=== PATIENT | female | born 1955 | race Caucasian/White ===

== ENCOUNTER → 2017-03-27 | Outpatient (CLI) | payer BC ==
--- NOTE | 2017-03-27 22:47 | WWHP ---
DATE OF DICTATION: 03/27/2017 CHIEF COMPLAINT: The patient is here for her routine gynecologic exam. HISTORY OF PRESENT ILLNESS: This is a 62-year-old G3, P2-0-1-2 with an LMP of 2010. The patient is without gynecologic complaints and denies any postmenopausal bleeding. PAST MEDICAL HISTORY: Hypothyroidism, but she is currently not taking medication for this. MEDICATIONS: None. ALLERGIES: NO KNOWN DRUG ALLERGIES. PAST SURGICAL HISTORY: 1. section x2. 2. D&C x4. 3. Left hip surgery following a fall in 01/22. 4. Colonoscopy at age 51. 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 SOCIAL HISTORY: She denies tobacco, alcohol and drug use. 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 She has been off work since her hip injury in 01/22. FAMILY HISTORY: Father had prostate cancer and diabetes. Mother had uterine cancer in situ. REVIEW OF SYSTEMS: She has gained about 6 pounds over the last year. She denies respiratory, cardiac or GI problems. PHYSICAL EXAM: Blood pressure 150/69 with repeat blood pressure 144/78. Height 5 feet 5 inches. Weight 154 pounds. Temperature 94. Pulse 75. This is a well-developed, well-nourished white female who is alert and oriented x3, in no acute distress. HEENT is within normal limits. NECK: Supple without mass or thyromegaly. CHEST AND LUNGS: Clear to auscultation. HEART: Regular rate and rhythm. Breasts are without mass or discharge. Axillary exam is negative for adenopathy. BACK: Negative for CVA tenderness. ABDOMEN: Soft, nontender, without palpable masses. PELVIC EXAM: External genitalia reveal mild atrophy without lesions. Cervix and vagina reveal mild atrophy without lesions. There is no evidence of prolapse. The uterus is mid position, non-gravid size and nontender. There are no palpable adnexal masses or tenderness. Rectovaginal exam is negative for mass or tenderness and is negative for occult blood. EXTREMITIES: Nontender. IMPRESSION: A 62-year-old menopausal female with normal gynecologic exam. PLAN: 1. Pap smear was performed. 2. Self breast examination was discussed. 3. Mammogram is due, and she has an appointment for this on 03/30/17. 4. Osteoporosis prevention was discussed. We will plan on bone density testing, and an order slip was given to the patient for this. 5. Screening colonoscopy was recommended since it has been more than 10 years since her last one, and she states she will look into doing this. 6. We have discussed her elevated blood pressure, and I have recommended that she establish with a primary care physician as soon as possible and follow up with that person for her blood pressure. I have also recommended that she do regular home blood pressure checks since she does have her own cuff. 7. I have recommended that she talk to her new primary care physician regarding the need for Synthroid, which she states she discontinued on her own at the time of her hip surgery. 8. She will return in one year.
== END | disposition home or self-care (01) ==
LOC: WWCWWP 11:30
PROVIDERS: ATTEND Obstetrics & Gynecology
DX: Z53.9 Procedure and treatment not carried out, unspecified reason (principal)

== ENCOUNTER → 2017-05-16 | Outpatient (CLI) | payer BC ==
--- NOTE | 2017-05-16 16:45 | BD ---
EXAMINATION TYPE: MG DEXA axial skeleton. DATE OF EXAM: 05/16/2017 COMPARISON: NONE CLINICAL HISTORY: 62-year-old female postmenopausal screening Height: 5 FT 4 1/2 IN Weight: 153 FRAX RISK QUESTIONS: Alcohol (3 or more units per day): NO Family History (Parent hip fracture): YES Glucocorticoids (More than 3mos): NO (Ex: prednisone, prednisolone, methylprednisolone, dexamethasone, and hydrocortisone). History of Fracture in Adulthood: YES Secondary Osteoporosis: 1. Type 1 Diabetes: NO 2. Hyperthyroidism: NO 3. Menopause before 45: NO 4. Malnutrition: NO 5. Chronic liver disease: NO Rheumatoid Arthritis: NO Current Tobacco Use: NO RISK FACTORS HISTORY OF: Hip Fracture (Right/Left): LEFT When: 2017 Surgery to Spine/Hip(right/left)/Wrist (right/left): LT HIP SURGERY When: 2017 Family History of Osteoporosis: NO Active: YES Postmenopausal woman: AGE 56 MEDICATIONS: Additional Medications: NONE Additional History: EXAM MEASUREMENTS: Bone mineral densitometry was performed using the [employer]. Bone mineral density as measured about the Lumbar spine is: ----- L1-L4(G/cm2): 1.100 T Score Values are as follows: ----- L2: -1.4 ----- L3: -0.7 ----- L4: -0.2 ----- L1-L4: -0.7 BASELINE Bone mineral density about the R hip (g/cm2): 0.670 T Score values are as follows: -----R Neck: -2.6 -----R Total: -2.8 BASELINE IMPRESSION: Osteoporosis (T Score less than -2.5) as noted by T Score values at the There is increased fracture risk and therapy is usually indicated based on age. Re-Screen 1-2 years. NOTE: T-SCORE=SD OF THE YOUNG ADULT MEAN.
== END | disposition home or self-care (01) ==
LOC: RADBDWWP 13:58
PROVIDERS: ATTEND Obstetrics & Gynecology
DX: M81.0 Age-related osteoporosis without current pathological fracture (principal); Z78.0 Asymptomatic menopausal state
CPT/HCPCS: 77080

== ENCOUNTER → 2017-05-22 | Outpatient (CLI) | payer BC ==
[2017-05-22 13:12] LABS: Calcium 9.5 mg/dL (8.4-10.2); Non-African American GFR(MDRD) >60 (>60 ml/min/1.73 sqM)
== END | disposition home or self-care (01) ==
LOC: LABWHC1 12:08
PROVIDERS: ATTEND Obstetrics & Gynecology
DX: M81.0 Age-related osteoporosis without current pathological fracture (principal)
CPT/HCPCS: 36415; 82310; 82565

== ENCOUNTER → 2018-04-24 | Outpatient (CLI) | payer BC ==
[2018-04-24 11:56] VITALS: BP 126/72; PULSE 65; TEMP 97.1; BMI 26.1
--- NOTE | 2018-04-24 12:47 | P.HPOB ---
History of Present Illness H&P Date: 04/24/18 Chief Complaint: The patient is here for her routine gynecologic exam. This is a 63-year-old with an LMP of 2010. The patient is without gynecologic complaints and denies any postmenopausal bleeding. Review of Systems The patient has gained 3 pounds over the last year. She believes she has gained some weight because of decreased activity after her hip surgery. She denies respiratory, cardiac, or G.I. problems. 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 History of Any Multi-Drug Resistant Organisms: None Reported Past Surgical History: Section (x2), Orthopedic Surgery (Left hip), Tonsillectomy, Tubal Ligation Additional Past Surgical History / Comment(s): D&C x4. Colonoscopy 2005. 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 - Past Family History Father Family Medical History: Cancer (Prostate), Diabetes Mellitus Mother Family Medical History: Cancer (Uterine CIS) Medications and Allergies Home Medications Medication Instructions Recorded Confirmed Type Alendronate Sodium 70 mg PO WEEKLY 04/24/18 04/24/18 History Cholecalciferol (Vitamin D3) cap PO DAILY 04/24/18 History [Vitamin D3] Folic Acid mg PO DAILY 04/24/18 History Multivitamin [Multivitamins Adult tab PO DAILY 04/24/18 History Gummies] Allergies Allergy/AdvReac Type Severity Reaction Status Date / Time No Known Allergies Allergy Unverified 04/24/18 11:51 Exam Vital Signs Temp Pulse BP 04/24/18 11:52 97.1 F L 65 126/72 Intake and Output 04/23/18 04/24/18 04/24/18 22:59 06:59 14:59 Other: Weight 71.271 kg Height 5'5", BMI 26.1. This is a well-developed well-nourished white female who is alert and oriented times 3 in no acute distress. HEENT: Within normal limits. NECK: Supple without mass or thyromegaly. CHEST AND LUNGS: Clear to auscultation. HEART: Regular rate and rhythm. BREASTS: Are without mass or discharge. AXILLARY EXAM: Negative for adenopathy. BACK: Negative for CVA tenderness. ABDOMEN: Soft, nontender, without palpable masses. PELVIC EXAM: Normal external genitalia with mild to moderate atrophy. Cervix and vagina appear normal moderate atrophy. There is no unusual discharge. There is no evidence of prolapse. The uterus is midposition, nongravid size and nontender. There are no palpable adnexal masses or tenderness. RECTAL EXAM: rectovaginal exam is negative for mass or tenderness and is negative for occult blood. EXTREMITIES: Nontender. IMPRESSION: 1. 63-year-old menopausal female with normal gynecologic exam. 2. Osteoporosis. She has been on Fosamax for almost one year. PLAN: 1. Pap smear was deferred since she had a normal one last year. 2. Self breast awareness was discussed. 3. Screening mammogram is due. She would like to have them done at [facility] an order slip was given to the patient for this. 4. Osteoporosis management was discussed. I stressed the importance of adequate calcium, vitamin D and regular exercise. She will continue Fosamax as directed. An electronic prescription will be sent to [facility] in [place]. We will plan on repeating bone density testing in one year. 5. I have recommended that she establish with a primary care physician. 6. I have recommended screening colonoscopy since it is been more than 10 years since her last one. Dr. Douglass's name was given to the patient for this since the doctor who did her previous colonoscopy is not in this area.
--- NOTE | 2018-07-02 17:50 | P.PN ---
Progress Note - Text Progress Note Date: 07/02/18 OUTPATIENT FOLLOW-UP NOTE TEST(S)/RESULTS: screening mammogram done on 06/26/2018 at [facility] ([address] mile) shows nodular asymmetry in the right breast requiring additional imaging. METHOD OF NOTIFICATION: she was notified by phone. She has not been contacted by [facility]. PATIENT COMMENTS: the patient has had a history of abnormal mammograms and a breast biopsy. DIAGNOSIS: incomplete screening mammogram with nodular asymmetry in the right breast. DISCUSSION: [] PLAN: right breast diagnostic mammogram and work up. An order slip will be sent to the patient by mail and she will have the workup done at [facility].
== END ==
LOC: WWCWWP 11:25
PROVIDERS: ATTEND Obstetrics & Gynecology
DX: Z53.9 Procedure and treatment not carried out, unspecified reason (principal)

== ENCOUNTER → 2019-05-28 | Outpatient (CLI) | payer BC ==
[2019-05-28 09:23] VITALS: BP 121/78; PULSE 72; RESP 18; TEMP 97.6; BMI 25.7
--- NOTE | 2019-05-28 10:12 | P.HPOB ---
History of Present Illness H&P Date: 05/28/19 Chief Complaint: The patient is here for her routine gynecologic exam. This is a 64 year old with an LMP of 2010. The patient is without gynecologic complaints and denies any postmenopausal bleeding. Review of Systems The patient's weight has been stable over the last year. She denies respiratory, cardiac, or G.I. problems. Past Medical History Past Medical History: No Reported History, Thyroid Disorder Additional Past Medical History / Comment(s): Osteoporosis(bisphosphonate Rx started 2016). Thyroid disorder not requiring medication. Atypical breast papilloma removed 2010(considered pre-cancerous). 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 History of Any Multi-Drug Resistant Organisms: None Reported Past Surgical History: Breast Surgery, Section, Orthopedic Surgery, Tonsillectomy, Tubal Ligation Additional Past Surgical History / Comment(s): D&C x4. Colonoscopy 2005. Breast Biopsy. Past Psychological History: No Psychological Hx Reported Smoking Status: Never smoker Past Alcohol Use History: None Reported Past Drug Use History: None Reported Additional History: She has been since 1977 and is not sexually active. 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 - Past Family History Father Family Medical History: Cancer, Diabetes Mellitus Additional Family Medical History / Comment(s): Prostate cancer. Mother Family Medical History: Cancer Additional Family Medical History / Comment(s): Uterine CIS. Medications and Allergies Home Medications Medication Instructions Recorded Confirmed Type Alendronate Sodium 70 mg PO WEEKLY #12 tablet 04/24/18 05/28/19 Rx Cholecalciferol (Vitamin D3) 1 cap PO DAILY 04/24/18 05/28/19 History [Vitamin D3] Folic Acid 1 mg PO DAILY 04/24/18 05/28/19 History Multivitamin [Multivitamins Adult 1 tab PO DAILY 04/24/18 05/28/19 History Gummies] Calcium Carbonate [Calcium] 600 mg PO DAILY 05/28/19 05/28/19 History Allergies Allergy/AdvReac Type Severity Reaction Status Date / Time No Known Allergies Allergy Unverified 04/24/18 11:51 Exam Vital Signs Temp Pulse Resp BP Pulse Ox 05/28/19 09:19 97.6 F 72 18 121/78 100 Intake and Output 05/27/19 05/28/19 05/28/19 22:59 06:59 14:59 Other: Weight 70.307 kg Height 5'5", weight 155 pounds, BMI 25.8. This is a well-developed well-nourished white female who is alert and oriented times 3 in no acute distress. HEENT: Within normal limits. NECK: Supple without mass or thyromegaly. CHEST AND LUNGS: Clear to auscultation. HEART: Regular rate and rhythm. BREASTS: Are without mass or discharge. AXILLARY EXAM: Negative for adenopathy. BACK: Negative for CVA tenderness. ABDOMEN: Soft, nontender, without palpable masses. PELVIC EXAM: Normal external genitalia with mild to moderate atrophy. Cervix and vagina appear normal with mild to moderate atrophy. There is no unusual discharge. There is no evidence of prolapse. The uterus is midposition, nongravid size and nontender. There are no palpable adnexal masses or tenderness. RECTAL EXAM: rectovaginal exam is negative for mass or tenderness and is negative for occult blood. EXTREMITIES: Nontender. IMPRESSION: 1. 64-year-old menopausal female with normal gynecologic exam. 2. Osteoporosis. The patient has been on Fosamax for 2 years. PLAN: 1. Pap smear was performed. 2. Self breast awareness was discussed with the patient. 3. Mammogram will be due after 06/26/2019. Her mammograms are done at [facility]. The order slip will be sentenced to the patient by mail after I determine whether it should be a screening or diagnostic mammogram. Last year's mammogram did require a right breast workup and this report is currently not available in the EMR. [facility] will be called regarding this. 4. Continue alendronate. The electronic prescription will be sent to [facility] pharmacy in [place]. Osteoporosis management was discussed. I have stressed the importance of adequate calcium, vitamin D and regular exercise. Recommended amounts of calcium and vitamin D were also discussed. Bone density testing was recommended and the order slip was given to the patient for this. 5. We have decided to avoid all forms of HRT because of her history of atypical papilloma with her breast biopsy in 2010. Because of this, we have decided to avoid vaginal estrogen cream as well. 6. She was advised to return in one year for her annual well woman exam.
== END | disposition home or self-care (01) ==
LOC: WWCWWP 09:00
PROVIDERS: ATTEND Obstetrics & Gynecology
DX: Z53.9 Procedure and treatment not carried out, unspecified reason (principal)

== ENCOUNTER → 2019-09-24 | Outpatient (CLI) | payer BC ==
[2019-09-24 11:35] VITALS: BP 148/82; PULSE 79; RESP 18; TEMP 97.8
--- NOTE | 2019-09-24 12:15 | P.PN ---
Progress Note - Text Progress Note Date: 09/24/19 Chief Complaint: Small orangish red vaginal discharge over the past 12 days HPI: This is a 64-year-old with an LMP of 2010. The patient developed a watery orangish red discharge from the vagina about 12 days ago. This was brief and there may have been a minimal odor but no itching or irritation. 3 days later she noticed a clear mucus see streak from the vagina. And a couple of days later after a bowel movement she noticed a small orangish red drainage again from the vagina. She has not had any discharge or blood over the past 6 or 7 days. She is not sexually active and denies inserting anything into the vagina. ROS: she denies respiratory, cardiac, or GI problems. PE: Blood pressure: 148/82, Height: 5 feet 4 inches, Weight: 150 pounds, Temperature: 97.8, Pulse:79, pulse oximeter 100%.. This is a well developed, well nourished, white female who is alert and orientedx3, in no acute distress. Abdomen: Soft nontender without palpable masses. Pelvic exam: Normal external genitalia. Cervix and vagina reveals mild atrophy without lesions. There is no evidence of blood or abnormal discharge. No odor is noted. There is no cervical motion tenderness. Uterus is midposition, nongravid size, and nontender. There are no palpable adnexal masses or tenderness. Impression: 1. 64-year-old menopausal female with small amounts of orangish/red discharge without any significant physical findings at this time. This probably represents a small amount of postmenopausal bleeding but is somewhat atypical in its description. 2. Normal gynecologic exam. Plan: 1. The patient will be scheduled for a pelvic ultrasound. If endometrial thickening or recurrent postmenopausal bleeding, consider referral for hysteroscopy and D&C. Time spent with the patient: 25 minutes
== END ==
LOC: WWCWWP 11:15
PROVIDERS: ATTEND Obstetrics & Gynecology
DX: Z53.9 Procedure and treatment not carried out, unspecified reason (principal)

== ENCOUNTER → 2019-10-06 | Outpatient (CLI) | payer BC ==
--- NOTE | 2019-10-06 23:18 | US ---
EXAMINATION TYPE: US pelvis complete transvag DATE OF EXAM: 10/06/2019 COMPARISON: NONE CLINICAL HISTORY: N95.0 PMB. Spotting, 2 prior c-sections, tubal ligation TECHNIQUE: Transvaginal (TV) and Transabdominal (TA) . Transabdominal sonographic images of the pel vis were acquired. Transvaginal sonographic images were medically necessary to better assess the fol lowing anatomy: uterus Date of LMP: unknown EXAM MEASUREMENTS: Uterus: 6.4 x 2.4 x 3.8 cm Endometrial Stripe: 0.2 cm Right Ovary: unable to visualize Left Ovary: unable to visualize 1. Uterus: Anteverted, calcifications noted 2. Endometrium: appears wnl 3. Right Ovary: Obscured by overlying bowel gas 4. Left Ovary: Obscured by overlying bowel gas 5. Bilateral Adnexa: appears wnl 6. Posterior cul-de-sac: wnl Heterogeneous anteverted uterus with poor visualization of endometrial stripe likely atrophic and is better seen on transvaginal investigation without suspicious thickening. No free fluid pelvic cul-de- sac. No adnexal masses noted. IMPRESSION: No suspicious endometrial thickening.
--- NOTE | 2019-10-07 13:14 | P.PN ---
Progress Note - Text Progress Note Date: 10/07/19 OUTPATIENT FOLLOW-UP NOTE TEST(S)/RESULTS: Pelvic ultrasound on 10/06/2019 shows no suspicious findings or endometrial thickening. The endometrial thickness was 0.2 cm. METHOD OF NOTIFICATION: The patient was notified by phone. PATIENT COMMENTS: The patient states she has had no further abnormal reddish discharge since the one episode in early September. DIAGNOSIS: Unremarkable pelvic ultrasound after one episode of possible small postmenopausal bleeding. DISCUSSION: The patient was instructed to call if she has recurrence of her reddish discharge or vaginal bleeding or problems. If she is having recurrence of the symptoms, consider referral for hysteroscopy and D&C. PLAN: She will be due for her annual well woman exam in approximately 9 months.
== END ==
LOC: RADUSWWP 16:04
PROVIDERS: ATTEND Obstetrics & Gynecology
DX: N95.0 Postmenopausal bleeding (principal)
CPT/HCPCS: 76830; 76856

== ENCOUNTER 2019-10-15 10:39 | Day surgery (SDC) | payer BC ==
[~2019-10-15 10:39] MED LIST: LACTATED RINGERS 1,000 ML IV SCH; LIDOCAINE 1% 20 ML VIAL (10MG/ML) FOR IV START INTRADERMA PRN
[2019-10-15 11:29] VITALS: TEMP 98.6
[2019-10-15] MEDS ORDERED: PROPOFOL 10 MG/ML 20 ML VIAL IV ONE (12:36)
--- NOTE | 2019-10-15 13:00 | P.PCN ---
Date of Procedure: 10/15/19 Procedure(s) Performed: BRIEF HISTORY: Patient is a 64-year-old pleasant female scheduled for an elective colonoscopy as a part of screening for colorectal neoplasia. PROCEDURE PERFORMED: Colonoscopy. PREOPERATIVE DIAGNOSIS: Screening For colon cancer. IV sedation per Anesthesia. PROCEDURE: After informed consent was obtained, the patient, was brought into the endoscopy unit. IV sedation was administered by Anesthesia under continuous monitoring. Digital rectal examination was normal. Initially the Olympus CF-160 flexible video colonoscope was then inserted in the rectum, gradually advanced into the cecum without any difficulty. Careful examination was performed as the scope was gradually being withdrawn. Ileocecal valve and the appendiceal orifice were visualized and appeared normal. Prep was fair. Some areas of the colon could not be adequately visualized because of retained liquid stool with a lot of debris.. Mucosa of the cecum, ascending colon, transverse colon, descending colon, sigmoid colon, and rectum appeared normal. Retroflexion was performed in the rectum and no lesions were seen. The patient tolerated the procedure well. IMPRESSION: Normal-appearing colon from rectum to cecum with no evidence of colorectal neoplasia. RECOMMENDATIONS: Findings of this examination were discussed with the patient as well as a family. She was advised to have a repeat screening colonoscopy in 10 years
[2019-10-15 13:13] VITALS: RESP 16
[2019-10-15 13:32] VITALS: BP 135/66; PULSE 51
== END 2019-10-15 14:00 | disposition home or self-care (01) ==
LOC: ORWHC2ENDO 10:39
PROVIDERS: ATTEND Internal Medicine Gastroenterology
DX: Z12.11 Encounter for screening for malignant neoplasm of colon (principal); Z79.890 Hormone replacement therapy; E07.9 Disorder of thyroid, unspecified; M81.0 Age-related osteoporosis without current pathological fracture
CPT/HCPCS: J2704; G0121

== ENCOUNTER → 2020-04-16 | Outpatient (CLI) | payer BC ==
--- NOTE | 2020-04-16 13:58 | BD ---
EXAMINATION TYPE: Axial Bone Density DATE OF EXAM: 04/16/2020 COMPARISON: 05/16/2017 CLINICAL HISTORY: Height: 64.5 IN Weight: 152 LBS FRAX RISK QUESTIONS: Family History (Parent hip fracture): YES MOTHER History of Fracture in Adulthood: LT HIP FX AGE 60 RISK FACTORS HISTORY OF: Hip Fracture (Left): AGE 61 Surgery to Hip(left): AGE 61 Active: YES Postmenopausal woman: AGE 57 MEDICATIONS: Thyroid Medications: LEVOTHYROXINE How Lon+ YEARS Osteoporosis Medications: YES Which medication: Fosamax How Lon YEARS Additional Medications: CALCIUM, VIT D, FOSAMAX, LEVOTHYROXINE, DAILY VIT, MAGNESIUM, EXAM MEASUREMENTS: Bone mineral densitometry was performed using the [employer] System. Bone mineral density as measured about the Lumbar spine is: ----- L1-L4(G/cm2): 1.198 T Score Values are as follows: ----- L2: -0.2 ----- L3: 0.3 ----- L4: 0.5 ----- L1-L4: 0.2 Bone mineral density has: Increased 10.0% since study of: 05/16/2017 Bone mineral density about the R hip (g/cm2): 0.740 T Score values are as follows: -----R Neck: -2.1 -----R Total: -2.4 Bone mineral density has: Increased 8.4% since study of: 05/16/2017 IMPRESSION: Osteopenia. NOTE: T-SCORE=SD OF THE YOUNG ADULT MEAN.
== END | disposition home or self-care (01) ==
LOC: RADBDWWP 09:17
PROVIDERS: ATTEND Obstetrics & Gynecology
DX: M85.80 Other specified disorders of bone density and structure, unspecified site (principal); Z78.0 Asymptomatic menopausal state; M81.0 Age-related osteoporosis without current pathological fracture
CPT/HCPCS: 77080

== ENCOUNTER → 2020-06-08 | Outpatient (CLI) | payer BC ==
[2020-06-08 14:20] VITALS: BP 129/85; PULSE 74; RESP 14; TEMP 98.5
--- NOTE | 2020-06-08 15:31 | P.HPOB ---
History of Present Illness H&P Date: 06/08/20 Chief Complaint: The patient is here for her routine gynecologic exam. This is a 65-year-old 012 with an LMP of 2010. The patient was previously seen in September 2019 for a reddish orarnge discharge. Pelvic ultrasound was done and showed a thin endometrial thickness of 0.2 cm. The patient states she has no longer had any discharge since September 2019. She is without gynecologic complaints and denies any postmenopausal bleeding. She states she is doing well with the alendronate taken for osteoporosis. Review of Systems The patient has lost 6 pounds over the last year. She denies respiratory, cardiac, or G.I. problems. Past Medical History Past Medical History: No Reported History, Thyroid Disorder Additional Past Medical History / Comment(s): Osteoporosis(bisphosphonate Rx started 2016). Thyroid disorder not requiring medication. Atypical breast papilloma removed 2010(considered pre-cancerous). 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 History of Any Multi-Drug Resistant Organisms: None Reported Past Surgical History: Breast Surgery, Section, Orthopedic Surgery, Tonsillectomy, Tubal Ligation Additional Past Surgical History / Comment(s): D&C x4. Colonoscopy 2019(next after 10yr). Breast Biopsy. ORIF LEFT FEMUR. Past Anesthesia/Blood Transfusion Reactions: No Reported Reaction Past Psychological History: No Psychological Hx Reported Smoking Status: Never smoker Past Alcohol Use History: None Reported Past Drug Use History: None Reported Additional History: She has been since 1977 and is not sexually active. 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 - Past Family History Father Family Medical History: Cancer, Diabetes Mellitus Additional Family Medical History / Comment(s): Prostate cancer. Mother Family Medical History: Cancer Additional Family Medical History / Comment(s): Uterine CIS. Medications and Allergies Home Medications Medication Instructions Recorded Confirmed Type Cholecalciferol (Vitamin D3) 2,000 unit PO DAILY 04/24/18 06/08/20 History [Vitamin D3] Folic Acid 1 mg PO DAILY 04/24/18 06/08/20 History Multivitamin [Multivitamins Adult 1 tab PO DAILY 04/24/18 06/08/20 History Gummies] Calcium Carbonate [Calcium] 600 mg PO DAILY 05/28/19 06/08/20 History Levothyroxine Sodium [Synthroid] 25 mcg PO QAM 09/24/19 06/08/20 History Alendronate Sodium 70 mg PO SA 10/13/19 06/08/20 History Allergies Allergy/AdvReac Type Severity Reaction Status Date / Time No Known Allergies Allergy Unverified 06/08/20 14:40 Exam Vital Signs Temp Pulse Resp BP Pulse Ox 06/08/20 14:06 98.5 F 74 14 129/85 98 Intake and Output 06/08/20 06/08/20 06/08/20 06:59 14:59 22:59 Other: Weight 67.585 kg Height 5 feet 5 inches, weight 149 pounds, BMI 24.8. This is a well-developed well-nourished white female who is alert and oriented times 3 in no acute distress. HEENT: Within normal limits. NECK: Supple without mass or thyromegaly. CHEST AND LUNGS: Clear to auscultation. HEART: Regular rate and rhythm. BREASTS: Are without mass or discharge. AXILLARY EXAM: Negative for adenopathy. BACK: Negative for CVA tenderness. ABDOMEN: Soft, nontender, without palpable masses. PELVIC EXAM: Normal external genitalia with mild to moderate atrophy. Cervix and vagina appear normal with moderate atrophy. There is no unusual discharge. There is no evidence of prolapse. The uterus is midposition, nongravid size and nontender. There are no palpable adnexal masses or tenderness. RECTAL EXAM: Declined by the patient since she just recently had a colonoscopy done earlier this year. EXTREMITIES: Nontender. IMPRESSION: 1. 65-year-old menopausal female with normal gynecologic exam. 2. Resolution of reddish [place] discharge which she experienced prior to her September 2019 exam. 3. History of osteoporosis doing well on alendronate. PLAN: 1. Pap smear was deferred since she had a normal one on 05/28/2019. 2. Self breast awareness was discussed with the patient. 3. Screening mammogram will be due after 07/17/2020 and she states she has these done at [facility]. The order slip was given to the patient for this. 4. Osteoporosis management was discussed. I have stressed the importance of adequate calcium, vitamin D and regular exercise. Recommended amounts of calcium and vitamin D were also discussed. She will continue on alendronate at this time. The electronic prescription for alendronate 70 mg by mouth every week will be sent to [facility] pharmacy in [place]. 5. She was advised to return in one year for her annual well woman exam.
== END | disposition home or self-care (01) ==
LOC: WWCWWP 13:54
PROVIDERS: ATTEND Obstetrics & Gynecology
DX: Z53.9 Procedure and treatment not carried out, unspecified reason (principal)

== ENCOUNTER → 2021-06-21 | Outpatient (CLI) | payer MEDICARE ==
[2021-06-21 11:34] VITALS: BP 127/79; PULSE 58; RESP 16; TEMP 98.1
--- NOTE | 2021-06-21 12:25 | P.HPOB ---
History of Present Illness H&P Date: 06/21/21 Chief Complaint: The patient is here for her routine gynecologic exam. This is a 66-year-old 012 with an LMP of 2010. The patient is without gynecologic complaints and denies any postmenopausal bleeding. The patient states she plans on discontinuing Fosamax because of receding gums that she thinks may be caused by the Fosamax. Review of Systems Weight has been stable. She denies respiratory, cardiac and G.I. problems. She denies maltreatment or problems with falling. : she denies any significant problems with urinary leakage. Past Medical History Past Medical History: No Reported History, Thyroid Disorder Additional Past Medical History / Comment(s): Osteoporosis(s/p bisphosphonate use [id number]). Thyroid disorder not requiring medication. Atypical breast pap illoma removed 2010(considered pre-cancerous). 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 History of Any Multi-Drug Resistant Organisms: None Reported Past Surgical History: Breast Surgery, Section, Orthopedic Surgery, Tonsillectomy, Tubal Ligation Additional Past Surgical History / Comment(s): D&C x4. Colonoscopy 2019(next after 10yr). Breast Biopsy. ORIF LEFT FEMUR. Past Anesthesia/Blood Transfusion Reactions: No Reported Reaction Past Psychological History: No Psychological Hx Reported Smoking Status: Never smoker Past Alcohol Use History: None Reported Past Drug Use History: None Reported Additional History: She has been since 1977 and is not sexually active. 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 - Past Family History Father Family Medical History: Cancer, Diabetes Mellitus Additional Family Medical History / Comment(s): Prostate cancer. Mother Family Medical History: Cancer, Dementia Additional Family Medical History / Comment(s): Uterine CIS. Medications and Allergies Home Medications Medication Instructions Recorded Confirmed Type Cholecalciferol (Vitamin D3) 2,000 unit PO DAILY 04/24/18 06/21/21 History [Vitamin D3] Folic Acid 1 mg PO DAILY 04/24/18 06/21/21 History Multivitamin [Multivitamins Adult 1 tab PO DAILY 04/24/18 06/21/21 History Gummies] Calcium Carbonate [Calcium] 600 mg PO DAILY 05/28/19 06/21/21 History Levothyroxine Sodium [Synthroid] 25 mcg PO QAM 09/24/19 06/21/21 History Alendronate Sodium 70 mg PO WEEKLY #12 tab 06/08/20 06/21/21 Rx Magnesium 200 mg PO DAILY 06/21/21 06/21/21 History Allergies Allergy/AdvReac Type Severity Reaction Status Date / Time No Known Allergies Allergy Unverified 06/21/21 11:16 Exam Vital Signs Temp Pulse Resp BP Pulse Ox 06/21/21 11:29 98.1 F 58 L 16 127/79 99 Intake and Output 06/20/21 06/21/21 06/21/21 22:59 06:59 14:59 Other: Weight 68.039 kg Height 5 feet 4 inches, weight 150 pounds, BMI 25.7. This is a well-developed well-nourished white female who is alert and oriented times 3 in no acute distress. HEENT: Within normal limits. NECK: Supple without mass or thyromegaly. CHEST AND LUNGS: Clear to auscultation. HEART: Regular rate and rhythm. BREASTS: Are without mass or discharge. AXILLARY EXAM: Negative for adenopathy. BACK: Negative for CVA tenderness. ABDOMEN: Soft, nontender, without palpable masses. PELVIC EXAM: Normal external genitalia with mild to moderate atrophy. Cervix and vagina appear normal with mild to moderate atrophy. There is no unusual discharge. There is no evidence of prolapse. The uterus is midposition, nongravid size and nontender. There are no palpable adnexal masses or tenderness. RECTAL EXAM: Rectovaginal exam is negative for mass or tenderness and is negative for occult blood. EXTREMITIES: Nontender. IMPRESSION: 1. 66-year-old menopausal female with normal gynecologic exam. 2. History of osteoporosis and has been on Fosamax since 2017. She is planning on discontinuing Fosamax due to receding gums. PLAN: 1. Pap smear was performed. If this is negative, we will plan on discontinuing Pap smears based on her age and no history of cervical neoplasia with adequate screening. 2. Self breast awareness was discussed with the patient. We have also discussed symptoms associated with inflammatory breast cancer. 3. Screening mammogram will be due next month and the order slip was given to the patient for this. She has them done at [facility]. 4. Osteoporosis management was discussed. I have stressed the importance of adequate calcium, vitamin D and regular exercise. Recommended amounts of calcium and vitamin D were also discussed. She is going to discontinue Fosamax after 4 years as above. We will plan on repeating bone density testing in 1 year. Her last bone density testing was done in April 2020. 5. She did receive the Bruno and Bruno Covid vaccination. 6. The patient was advised to return in 1-2 years for her well woman examination.
== END ==
LOC: WWCWWP 11:09
PROVIDERS: ATTEND Obstetrics & Gynecology
DX: Z01.419 Encounter for gynecological examination (general) (routine) without abnormal findings (principal); Z87.310 Personal history of (healed) osteoporosis fracture

== ENCOUNTER → 2023-01-16 | Outpatient (CLI) | payer MEDICARE ==
[2023-01-16 09:20] VITALS: BP 129/77; PULSE 78; RESP 16; TEMP 97.5
--- NOTE | 2023-01-16 10:19 | P.HPOB ---
History of Present Illness H&P Date: 01/16/23 Chief Complaint: The patient is here for her routine gynecologic exam. This is a 67-year-old 012 with an LMP of 2010. The patient is without gynecologic complaints and denies any postmenopausal bleeding. The patient has a history of osteoporosis and discontinued Fosamax in 2020 because of receding gums and GI side effects with Fosamax. She states her symptoms have improved after she discontinued it. Review of Systems The patient has gained 7 pounds over the last year. She denies respiratory, cardiac, or G.I. problems. Past Medical History Past Medical History: Thyroid Disorder Additional Past Medical History / Comment(s): Osteoporosis(s/p bisphosphonate use [id number]). Thyroid disorder not requiring medication. Atypical breast papilloma removed 2010(considered pre-cancerous). 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 History of Any Multi-Drug Resistant Organisms: None Reported Past Surgical History: Breast Surgery, Section, Orthopedic Surgery, Tonsillectomy, Tubal Ligation Additional Past Surgical History / Comment(s): D&C x4. Colonoscopy 2019(next after 10yr). Breast Biopsy. ORIF LEFT FEMUR. Past Anesthesia/Blood Transfusion Reactions: No Reported Reaction Past Psychological History: No Psychological Hx Reported Smoking Status: Never smoker Past Alcohol Use History: None Reported Past Drug Use History: None Reported Additional History: She has been since 1977 and is not sexually active. 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 - Past Family History Father Family Medical History: Cancer, Diabetes Mellitus Additional Family Medical History / Comment(s): Prostate cancer. Mother Family Medical History: Cancer, Dementia Additional Family Medical History / Comment(s): Uterine CIS. Medications and Allergies Home Medications Medication Instructions Recorded Confirmed Type Cholecalciferol (Vitamin D3) 2,000 unit PO DAILY 04/24/18 01/16/23 History [Vitamin D3] Folic Acid 1 mg PO DAILY 04/24/18 01/16/23 History Multivitamin [Multivitamins Adult 1 tab PO DAILY 04/24/18 01/16/23 History Gummies] Calcium Carbonate [Calcium] 600 mg PO DAILY 05/28/19 01/16/23 History Levothyroxine Sodium [Synthroid] 25 mcg PO QAM 09/24/19 01/16/23 History Magnesium 200 mg PO DAILY 06/21/21 01/16/23 History Allergies Allergy/AdvReac Type Severity Reaction Status Date / Time No Known Allergies Allergy Unverified 01/16/23 09:16 Exam Vital Signs Temp Pulse Resp BP Pulse Ox 01/16/23 09:17 97.5 F L 78 16 129/77 100 Intake and Output 01/15/23 01/16/23 01/16/23 22:59 06:59 14:59 Other: Weight 71.214 kg Height 5 feet 5 inches, weight 157 pounds, BMI 26.1. This is a well-developed well-nourished white female who is alert and oriented times 3 in no acute distress. HEENT: Within normal limits. NECK: Supple without mass or thyromegaly. CHEST AND LUNGS: Clear to auscultation. HEART: Regular rate and rhythm. BREASTS: Are without mass or discharge. AXILLARY EXAM: Negative for adenopathy. BACK: Negative for CVA tenderness. ABDOMEN: Soft, nontender, without palpable masses. PELVIC EXAM: Normal external genitalia with mild to moderate atrophy. Cervix and vagina appear normal with mild to moderate atrophy. There is no unusual discharge. There is no evidence of prolapse. The uterus is midposition, nongravid size and nontender. There are no palpable adnexal masses or tenderness. RECTAL EXAM: Rectovaginal exam is negative for mass or tenderness and is negative for occult blood. EXTREMITIES: Nontender. IMPRESSION: 1. 67-year-old menopausal female with normal gynecologic exam. 2. History of osteoporosis status post 3 years use of Fosamax which was discontinued in 2020. PLAN: 1. Pap smears have been discontinued. 2. Self breast awareness was discussed with the patient. We have also discussed symptoms associated with inflammatory breast cancer. 3. Screening mammogram is due and the order slip was given to the patient for this. She has them done at [facility]. The order slip was given to the patient for this. 4. Osteoporosis management was discussed. I have stressed the importance of adequate calcium, vitamin D and regular exercise. Recommended amounts of calcium and vitamin D were also discussed. I have recommended repeating the bone density test and the order slip was given to the patient for this. 5. She was advised to return in one year for her annual well woman exam.
== END ==
LOC: WWCWWP 09:04
PROVIDERS: ATTEND Obstetrics & Gynecology
DX: Z01.419 Encounter for gynecological examination (general) (routine) without abnormal findings (principal); E07.9 Disorder of thyroid, unspecified; M81.0 Age-related osteoporosis without current pathological fracture; Z83.3 Family history of diabetes mellitus; Z86.018 Personal history of other benign neoplasm

== ENCOUNTER 2024-01-18 18:20 | Emergency (ER) | payer MEDICARE ==
[2024-01-18 18:49] VITALS: TEMP 98
--- NOTE | 2024-01-18 20:02 | ED ---
Headache HPI - General Chief Complaint: Headache Stated Complaint: Hypertension Time Seen by Provider: 01/18/24 19:12 Mode of arrival: ambulatory Limitations: no limitations - History of Present Illness Initial Comments: 68-year-old female presenting with chief complaint of elevated blood pressure. Patient reports 2 days ago she was at the dentist and had a blood pressure checked, she noted that it was in the 140s systolic over 90s diastolic. She does not have any history of high blood pressure. States that she has been rechecking it last 2 days and it has remained elevated. Today she noted that it was in the 160s systolic and 100s diastolic. States that she has a mild headache 2 out of 10 pain. Feels like headache she has had in the past. She does not follow with a PCP but states that she checks her blood pressure about every 8 weeks. No chest pain or difficulty breathing. No blurry vision or lightheadedness. No abdominal pain, nausea, or vomiting. No injury or trauma No numbness or tingling. - Related Data Home Medications Medication Instructions Recorded Confirmed Cholecalciferol (Vitamin D3) 2,000 unit PO DAILY 04/24/18 01/16/23 [Vitamin D3] Folic Acid 1 mg PO DAILY 04/24/18 01/16/23 Multivitamin [Multivitamins Adult 1 tab PO DAILY 04/24/18 01/16/23 Gummies] Calcium Carbonate [Calcium] 600 mg PO DAILY 05/28/19 01/16/23 Levothyroxine Sodium [Synthroid] 25 mcg PO QAM 09/24/19 01/16/23 Magnesium 200 mg PO DAILY 06/21/21 01/16/23 Previous Rx's Medication Instructions Recorded amLODIPine [Norvasc] 5 mg PO DAILY #7 tab 01/18/24 Allergies Allergy/AdvReac Type Severity Reaction Status Date / Time No Known Allergies Allergy Verified 01/18/24 18:46 Review of Systems ROS Statement: Those systems with pertinent positive or pertinent negative responses have been documented in the HPI. ROS Other: All systems not noted in ROS Statement are negative. Past Medical History Past Medical History: Thyroid Disorder Additional Past Medical History / Comment(s): Osteoporosis(s/p bisphosphonate use [id number]). Thyroid disorder not requiring medication. Atypical breast papilloma removed 2010(considered pre-cancerous). 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 History of Any Multi-Drug Resistant Organisms: None Reported Past Surgical History: Breast Surgery, Section, Orthopedic Surgery, Tonsillectomy, Tubal Ligation Additional Past Surgical History / Comment(s): D&C x4. Colonoscopy 2019(next after 10yr). Breast Biopsy. ORIF LEFT FEMUR. Past Anesthesia/Blood Transfusion Reactions: No Reported Reaction Past Psychological History: No Psychological Hx Reported Smoking Status: Never smoker Past Alcohol Use History: None Reported Past Drug Use History: None Reported - Past Family History Father Family Medical History: Cancer, Diabetes Mellitus Additional Family Medical History / Comment(s): Prostate cancer. Mother Family Medical History: Cancer, Dementia Additional Family Medical History / Comment(s): Uterine CIS. General Exam Limitations: no limitations General appearance: alert, in no apparent distress Head exam: Present: atraumatic, normocephalic Eye exam: Present: normal appearance, PERRL, EOMI. Absent: periorbital swelling Pupils: Present: normal accommodation Neck exam: Present: normal inspection. Absent: meningismus Respiratory exam: Present: normal lung sounds bilaterally. Absent: respiratory distress, wheezes, rales, rhonchi, stridor Cardiovascular Exam: Present: regular rate, normal rhythm, normal heart sounds. Absent: systolic murmur, diastolic murmur, rubs, gallop, clicks Extremities exam: Present: normal inspection, full ROM Neurological exam: Present: alert, oriented X3 Psychiatric exam: Present: normal affect, normal mood Skin exam: Present: warm, dry Course Vital Signs 01/18/24 01/18/24 01/18/24 18:41 19:03 21:24 Temperature 98.0 F Pulse Rate 89 69 71 Respiratory 16 18 16 Rate Blood Pressure 181/91 178/96 160/91 O2 Sat by Pulse 100 100 96 Oximetry Medical Decision Making - Medical Decision Making Was pt. sent in by a medical professional or institution (, PA, ASSEMBLER HANDBAGS, urgent care, hospital, or long term...) When possible be specific @ -No Did you speak to anyone other than the patient for history (EMS, parent, family, police, friend...)? What history was obtained from this source @ -No Did you review nursing and triage notes (agree or disagree)? Why? @ -I reviewed and agree with nursing and triage notes Were old charts reviewed (outside hosp., previous admission, EMS record, old EKG, old radiological studies, urgent care reports/EKG's, long term records)? Report findings @ -No old charts were reviewed Differential Diagnosis (chest pain, altered mental status, abdominal pain women, abdominal pain men, vaginal bleeding, weakness, fever, dyspnea, syncope, headache, dizziness, GI bleed, back pain, seizure, CVA, palpatations, mental health, musculoskeletal)? @ -Differential includes idiopathic hypertension, renal disease, electrolyte abnormalities, CHF, this is not an all-inclusive list EKG interpreted by me (3pts min.). @ -EKG shows sinus rhythm ventricular rate 63. DC interval 193. QRS 88. QT 427. QTc 435. X-rays interpreted by me (1pt min.). @ -None done CT interpreted by me (1pt min.). @ -None done U/S interpreted by me (1pt. min.). @ -None done What testing was considered but not performed or refused? (CT, X-rays, U/S, labs)? Why? @ -None What meds were considered but not given or refused? Why? @ -None Did you discuss the management of the patient with other professionals (professionals i.e. DrYahir, PA, ASSEMBLER HANDBAGS, lab, RT, psych nurse, social media intern, artisan plasterer, teacher, special technical operations officer, child welfare caseworker)? Give summary @ -No Was smoking cessation discussed for >3mins.? @ -No Was critical care preformed (if so, how long)? @ -No Were there social determinants of health that impacted care today? How? ( Homelessness, low income, unemployed, alcoholism, drug addiction, transportation, low edu. Level, literacy, decrease access to med. care, prison, rehab)? @ -No Was there de-escalation of care discussed even if they declined (Discuss DNR or withdrawal of care, Hospice)? DNR status @ -No What co-morbidities impacted this encounter? (DM, HTN, Smoking, COPD, CAD, Cancer, CVA, ARF, Chemo, Hep., AIDS, mental health diagnosis, sleep apnea, morbid obesity)? @ -None Was patient admitted / discharged? Hospital course, mention meds given and route, prescriptions, significant lab abnormalities, going to OR and other pertinent info. @ -68-year-old female presenting chief complaint of elevated blood pressure. She does complain of a very mild 2 out of 10 headache. No other symptoms. No history of hypertension. History and physical exam are conducted. Patient is given Tylenol for headache. CBC and CMP requires no action. Blood pressure has slightly decreased throughout her course here. Her headache improved after Tylenol. She is with a short course of Norvasc and is instructed to follow-up with PCP. She does not currently have a PCP and some suggestions are provided, states that she is attempting to get in with Dr. Hewitt. Discharged home. Follow-up with PCP. Report back to ER with any new or worsening symptoms. Discussed return parameters and answered all questions. Patient conveyed verbal understanding and agreed to the plan. I discussed this case in detail with my attending Dr. Holt Undiagnosed new problem with uncertain prognosis? @ -No Drug Therapy requiring intensive monitoring for toxicity (Heparin, Nitro, Insulin, Cardizem)? @ -No Were any procedures done? @ -No Diagnosis/symptom? @ -Hypertension Acute, or Chronic, or Acute on Chronic? @ -Acute Uncomplicated (without systemic symptoms) or Complicated (systemic symptoms)? @ -Uncomplicated Side effects of treatment? @ -No Exacerbation, Progression, or Severe Exacerbation? @ -No Poses a threat to life or bodily function? How? (Chest pain, USA, GA, pneumonia, PE, COPD, DKA, ARF, appy, cholecystitis, CVA, Diverticulitis, Homicidal, Suicidal, threat to staff... and all critical care pts) @ -No immediate threat - Lab Data Result diagrams: 01/18/24 19:40 01/18/24 19:40 Lab Results 01/18/24 01/18/24 01/18/24 Range/Units 19:40 19:40 19:40 WBC 5.0 (3.8-10.6) k/uL RBC 4.04 (3.80-5.40) m/uL Hgb 12.4 (11.4-16.0) gm/dL Hct 37.4 (34.0-46.0) % MCV 92.5 (80.0-100.0) fL MCH 30.6 (25.0-35.0) pg MCHC 33.1 (31.0-37.0) g/dL RDW 13.6 (11.5-15.5) % Plt Count 257 (150-450) k/uL MPV 7.4 Neutrophils % 53 % Lymphocytes % 37 % Monocytes % 7 % Eosinophils % 1 % Basophils % 1 % Neutrophils # 2.6 (1.3-7.7) k/uL Lymphocytes # 1.9 (1.0-4.8) k/uL Monocytes # 0.3 (0-1.0) k/uL Eosinophils # 0.0 (0-0.7) k/uL Basophils # 0.0 (0-0.2) k/uL Sodium 142 (137-145) mmol/L Potassium 3.8 (3.5-5.1) mmol/L Chloride 108 H (98-107) mmol/L Carbon Dioxide 26 (22-30) mmol/L Anion Gap 8 mmol/L BUN 11 (7-17) mg/dL Creatinine 0.67 (0.52-1.04) mg/dL Est GFR (CKD-EPI)AfAm >90 (>60 ml/min/1.73 sqM) Est GFR (CKD-EPI)NonAf >90 (>60 ml/min/1.73 sqM) Glucose 96 (74-99) mg/dL Calcium 9.7 (8.4-10.2) mg/dL Total Bilirubin 0.4 (0.2-1.3) mg/dL AST 31 (14-36) U/L ALT 19 (4-34) U/L Alkaline Phosphatase 91 (38-126) U/L Troponin I <0.012 (0.000-0.034) ng/mL Total Protein 7.8 (6.3-8.2) g/dL Albumin 4.9 (3.5-5.0) g/dL Disposition Clinical Impression: Hypertension Disposition: HOME SELF-CARE Condition: Good Instructions (If sedation given, give patient instructions): Acute Headache (ED), Hypertension (ED) Additional Instructions: Follow-up with PCP, suggestions provided. Report back to ER with any new or worsening symptoms. Prescriptions: amLODIPine [Norvasc] 5 mg PO DAILY #7 tab Is patient prescribed a controlled substance at d/c from ED?: No Referrals: None,Stated [Primary Care Provider] - 1-2 days Wang Levy MD [STAFF PHYSICIAN] - 1-2 days Joni Rankin MD [STAFF PHYSICIAN] - 1-2 days Gorge Howard MD [STAFF PHYSICIAN] - 1-2 days Time of Disposition: 21:36
[2024-01-18] MEDS: ACETAMINOPHEN TAB 325 MG TAB PO STA (20:40)
[2024-01-18 20:42] LABS: Basophils % (A) 1 %; Eosinophils % (A) 1 %; HCT 37.4 % (34.0-46.0); HGB 12.4 gm/dL (11.4-16.0); Lymphocytes # (A) 1.9 k/uL (1.0-4.8); Lymphocytes % (A) 37 %; MCH 30.6 pg (25.0-35.0); MCHC 33.1 g/dL (31.0-37.0); MCV 92.5 fL (80.0-100.0); Mean Platelet Volume 7.4; Monocytes # (A) 0.3 k/uL (0-1.0); Monocytes % (A) 7 %; Neutrophils # (A) 2.6 k/uL (1.3-7.7); Neutrophils % (A) 53 %; Platelet Count 257 k/uL (150-450); RBC 4.04 m/uL (3.80-5.40); RDW 13.6 % (11.5-15.5)
[2024-01-18 21:16] LABS: ALT 19 U/L (4-34); AST 31 U/L (14-36); African American GFR (CKD) >90 (>60 ml/min/1.73 sqM); Albumin 4.9 g/dL (3.5-5.0); Alkaline Phosphatase 91 U/L (38-126); Anion Gap 8 mmol/L; Blood Urea Nitrogen 11 mg/dL (7-17); Calcium 9.7 mg/dL (8.4-10.2); Carbon Dioxide 26 mmol/L (22-30); Chloride 108 mmol/L (98-107); Glucose 96 mg/dL (74-99); Non-African American GFR(CKD) >90 (>60 ml/min/1.73 sqM); Potassium 3.8 mmol/L (3.5-5.1); Sodium 142 mmol/L (137-145); Total Bilirubin 0.4 mg/dL (0.2-1.3); Total Protein 7.8 g/dL (6.3-8.2)
[2024-01-18] MEDS: amLODIPine 5 MG TAB PO STA (21:23)
[2024-01-18 21:56] VITALS: BP 160/91; PULSE 71; RESP 16
== END 2024-01-18 21:45 | disposition home or self-care (01) ==
LOC: EC 18:20
DX: I10 Essential (primary) hypertension (principal)
CPT/HCPCS: 36415; 80053; 84484; 85025; 93005; 99284

== ENCOUNTER → 2024-12-18 | Outpatient (CLI) | payer MEDICARE | END | disposition home or self-care (01) | LOC: LABWHC1 11:56 | PROVIDERS: ATTEND Physician Assistant | DX: Z08 Encounter for follow-up examination after completed treatment for malignant neoplasm (principal); L30.9 Dermatitis, unspecified; L53.8 Other specified erythematous conditions; L82.0 Inflamed seborrheic keratosis; L81.4 Other melanin hyperpigmentation; L82.1 Other seborrheic keratosis; D22.72 Melanocytic nevi of left lower limb, including hip; D22.71 Melanocytic nevi of right lower limb, including hip; D22.5 Melanocytic nevi of trunk; Z85.828 Personal history of other malignant neoplasm of skin | CPT/HCPCS: 36415; 86038 ==